=== PATIENT | female | born 1965 | race Caucasian/White ===

== ENCOUNTER 2018-02-25 12:49 | Emergency (ER) | payer SELFPAY ==
--- OUTSIDE RECORDS SUMMARY | 2018-02-25 12:52 | XMS REPORT ---
:1965 [facility] [address] [place] [address] Care Team Providers Name Role Phone Unavailable Unavailable Unavailable Problems This patient has no known problems. Allergies, Adverse Reactions, Alerts This patient has no known allergies or adverse reactions. Medications This patient has no known medications. Results Test Description Test Time Test Comments Text Results Atomic Results Result Comments U/S GALLBLADDER 2016-09-04 16:42:08 Right upper quadrant ultrasoundLocation Code: [id number] HISTORY: Abdominal painTechnique: Grayscale and selected color Doppler ultrasound of the abdomen wasperformed.Findings:The liver is normal in echogenicity. There is no mass or intrahepatic biliaryductal dilatation. Right liver span is 15.2 cm.There are multiple intraluminal gallstones. Gallbladder wall is 3 mm. Commonbile duct measures 5 mm. There is no pericholecystic fluid. Sonographic Murphysign is negative.The right kidney is normal in echogenicity with no focal mass, cyst,calcification, or hydronephrosis. It measures 10.8 x 5.9 x 5.5 cm.The visualized portions of the pancreas, aorta, and inferior vena cava areunremarkable. IMPRESSION: Cholelithiasis without sonographic evidence of cholecystitis. LIVER PROFILE 2016-09-04 16:24:00 Test Item Value Reference Range Comments BILI TOTAL (test code=11A) 0.2 mg/dL 0.2-1.0 BILI DIRCT (test code=12A) <0.1 mg/dL 0.0-0.2 PROTEIN (test code=07D) 7.7 g/dL 6.4-8.2 ALBUMIN (test code=08D) 3.7 g/dL 3.5-4.8 GLOBULIN (test code=GLB) 4.0 g/dL 1.5-3.8 ALB/GLOB (test code=AGRR) 0.9 1.0-2.6 ALK PHOS (test code=35A) 64 IU/L 42-121 AST (test code=30A) 15 IU/L <=42 ALT (test code=31A) 25 IU/L <=78 BASIC METABOLIC [id number] 16:21:00 Test Item Value Reference Range Comments GLUCOSE (test code=06D) 92 mg/dL 75-100 SODIUM (test code=01A) 137 mmol/L 136-145 POTASSIUM (test code=01B) 3.6 mmol/L 3.6-5.1 CHLORIDE (test code=04A) 103 mmol/L 98-107 CO2 (test code=02A) 27 mmol/L 22-32 ANION GAP (test code=ANG) 10.6 mmol/L BUN (test code=05D) 8 mg/dL 7-18 CREATININE (test code=03E) 0.6 mg/dL 0.4-1.1 BUN/CREA R (test code=BCR) 14 12-20 CALCIUM (test code=09D) 9.5 mg/dL 8.3-9.5 CARDIAC [id number] 16:21:00 Test Item Value Reference Range Comments TROPONIN I (test code=A84) <0.015 ng/mL 0.000-0.045 CKMB (test code=A49) <1.0 ng/mL <=3.6 CPK (test code=32A) 75 IU/L 26-192 AMYLASE AND [id number] 16:21:00 Test Item Value Reference Range Comments AMYLASE (test code=10A) 46 U/L 28-100 LIPASE (test code=60A) 150 IU/L 73-393 PRO TIME AND [id number] 16:16:00 Test Item Value Reference Range Comments PT (test code=TT) 10.9 s 9.8-13.6 INR (test code=INR) 1.0 INRH (test code=INRH) SUGGESTED THERAPEUTIC RANGE FOR INR: 2.5 - 3.5 For Patients with Prosthetic Valves or Patients with recurrent Thromboembolic Events 2.0 - 3.0 For Most Other Applications PTT (test code=PTT) 33.5 s 20.2-38.0 PTTH (test code=PTTH) To monitor the effectiveness of heparin, we offer the Anti-Xa (Heparin Assay). It can be used for either unfractinated or LMW Heparin. Order Code is ANTI-XA SERUM [id number] 16:11:00 Test Item Value Reference Range Comments PREG SRM (test code=PGS) NEGATIVE NEGATIVE [id number] 16:07:00 Test Item Value Reference Range Comments COLOR (test code=COLU) YELLOW YELLOW CLARITY (test code=CLA) CLEAR CLEAR GLUCOSE UR (test code=UA GLUCOSE) NEGATIVE NEGATIVE BILI UR (test code=BILE) NEGATIVE NEGATIVE KETONES UR (test code=AMARI) NEGATIVE NEGATIVE SP GRAVITY (test code=SPGR) 1.006 1.005-1.030 PH UR (test code=PH) 7.5 4.5-8.0 PROTEIN UR (test code=PU) NEGATIVE NEGATIVE UROBIL UR (test code=UROQ) 0.2 EU/dL 0.2-1.0 NITRITE UR (test code=NITRITE) NEGATIVE NEGATIVE BLOOD UR (test code=UA BLOOD) NEGATIVE NEGATIVE LEUK ES UR (test code=LEUK) NEGATIVE NEGATIVE CBC (INCLUDES AUTOMATED DIFFERENTIAL)2016-09-04 16:06:00 Test Item Value Reference Range Comments WBC (test code=WBC) 8.8 10\S\3/uL 4.5-11.0 RBC (test code=RBC) 5.13 10\S\6/uL 4.20-5.60 HGB (test code=HBG) 14.9 g/dL 12.0-15.5 HCT (test code=HCT) 44.8 % 35.0-44.0 MCV (test code=MCV) 87.3 fL 81.0-99.0 MCH (test code=MCH) 29.0 pg 27.0-31.0 MCHC (test code=MCHC) 33.3 g/dL 32.0-36.0 RDW (test code=RDW) 15.1 % 11.5-14.5 PLT (test code=PLT) 239 10\S\3/uL 130-400 MPV (test code=MPV) 10.6 fL 9.4-12.4 NEUTROP # (test code=NE#) 5.1 10\S\3/uL 1.6-8.0 LYMPH # (test code=LY#) 2.9 10\S\3/uL 1.1-3.5 MONOCYTE # (test code=MO#) 0.6 10\S\3/uL 0.0-1.1 EOSINOPH # (test code=EO#) 0.1 10\S\3/uL 0.0-0.7 BASOPHIL # (test code=BA#) 0.1 10\S\3/uL 0.0-0.3 IG # (test code=IG#) 0.04 10\S\3/uL 0.00-0.06 NRBC # (test code=NRBC#) 0.00 10\S\3/uL 0.00-0.01 NEUTROPH % (test code=NE%) 57.7 % 35.0-73.0 LYMPH % (test code=LY%) 33.3 % 20.0-55.0 MONO % (test code=MO%) 7.1 % 2.5-10.0 EOSINOPH % (test code=EO%) 0.8 % 0.0-5.0 BASOPHIL % (test code=BA%) 0.6 % 0.0-2.0 IG % (test code=IG%) 0.5 % 0.0-0.8 NRBC% (test code=NRBC%) 0.0 % 0.0-0.2 MANDIFF (test code=MDIFF) NO NO
[2018-02-25] MEDS ORDERED: ASPIRIN 81 MG CHEWABLE TABLET ONE ×2 (13:16→13:20)
[2018-02-25] MEDS ORDERED: NA CHLORIDE 0.9% 1,000 ML ONE (13:16)
[2018-02-25 13:33] LABS: Absolute Lymphocytes (CBC) 1.9 K/uL (0.7-4.9); Absolute Monocytes 0.5 K/uL (0.1-1.3); Absolute Neutrophil 3.3 K/uL (1.8-8.0); Basophils % 0.8 % (0-1.3); Eosinophils % 1.4 % (0-4.4); Hematocrit 41.9 % (36.0-45.0); Lymphocytes % 33.3 % (15.3-44.8); MCH 27.8 pg (27.0-35.0); MCV 84.1 fL (80-100); MPV 9.3 fL (7.6-11.3); Monocytes % 7.9 % (3.3-12.3); RBC Red Blood Cell Count 4.98 M/uL (3.86-4.86)
[2018-02-25 13:38] LABS: Protime INR 0.98
[2018-02-25] MEDS ORDERED: IPRATROPIUM BROM 0.5MG/2.5ML ONE (13:42)
[2018-02-25] MEDS ORDERED: ALBUTEROL 2.5 MG/3 ML NEB SOL ONE (13:42)
[2018-02-25 13:55] LABS: ALT/SGPT 31 U/L (12-78); AST/SGOT 19 U/L (15-37); Albumin 3.9 g/dL (3.4-5.0); Alkaline Phosphatase 74 U/L (45-117); BUN Blood Urea Nitrogen 10 mg/dL (7-18); Bicarbonate 22 mmol/L (21-32); Bilirubin Direct < 0.1 mg/dL (0-0.2); Bilirubin Total 0.2 mg/dL (0.2-1.0); Glucose Level 105 mg/dL (74-106); Lipase 152 U/L (73-393); Magnesium 2.2 mg/dL (1.8-2.4); NT PRO-BNP 42 pg/mL (<125); Potassium 3.5 mmol/L (3.5-5.1); Protein, Total 7.5 g/dL (6.4-8.2); Sodium Level 141 mmol/L (136-145); Troponin (Emerg Dept Use Only) < 0.02 ng/mL (0.0-0.045)
[2018-02-25] MEDS ORDERED: KETOROLAC 30 MG/ML INJ ONE (14:25)
--- NOTE | 2018-02-25 15:46 | RAD REPORT ---
EXAM DESCRIPTION: William Single View02/25/2018 3:02 pm CLINICAL HISTORY: Chest pain COMPARISON: none FINDINGS: The left base is hazy. The remainder of the lungs appear clear. The heart is normal size IMPRESSION: Left base is hazy. This may represent a mild infiltrate/atelectasis or overlying soft t issue. PA and lateral chest series is recommended
--- NOTE | 2018-02-25 16:48 | RAD REPORT ---
EXAM DESCRIPTION: CT - Chest Angio - 02/25/2018 4:16 pm CLINICAL HISTORY: Chest pain. chest pain radiating to right arm COMPARISON: No comparisons TECHNIQUE: CT angiogram of the pulmonary arteries was performed with MIP. All CT scans are performed using dose optimization technique as appropriate and may include automated exposure control or mA/KV adjustment according to patient size. FINDINGS: No evidence of pulmonary thromboembolism. No acute aortic finding demonstrated. The lungs are mildly emphysematous with a 5 mm nodule in the superior segment right lower lobe. Pleur al abutting nodule is present measuring 8 mm in the posterior right upper lobe. 6 mm juxtapleural nod ules present in the left lung base. No focal pulmonary infiltrate is seen. No significant pericardial or pleural fluid. No concerning bony finding. Mild fatty liver. IMPRESSION: No evidence of pulmonary thromboembolism. Bilateral pulmonary nodules are present. According to the 2017 Fleishner guidelines for solid nodules 6-8 mm in size: Multiple nodules: *Low risk - CT at 3-6 months, then consider CT at 18-24 months. *High risk - CT at 3-6 months, then CT at 18-24 months.
--- NOTE | 2018-02-25 17:36 | ER ---
Nurse's Notes [facility] Name: Gianna Sharp Age: 52 yrs Sex: Female : 1965 Arrival Date: 02/25/2018 Time: 12:50 Bed 27 Private MD: Diagnosis: Other chest pain Presentation: 02/25 12:53 Presenting complaint: Patient states: R sided chest pains, since started today a little ch while ago. goes into my R arm. Transition of care: patient was not received from another setting of care. Onset of symptoms was February 25, 2018 at 12:00. Risk Assessment: Do you want to hurt yourself or someone else? Patient reports no desire to harm self or others. Initial Sepsis Screen: Does the patient meet any 2 criteria? No. Patient's initial sepsis screen is negative. Does the patient have a suspected source of infection? No. Patient's initial sepsis screen is negative. Care prior to arrival: None. 12:53 Method Of Arrival: Ambulatory 12:53 Acuity: ELICIA 3 ch Triage Assessment: 12:55 General: Appears in no apparent distress. comfortable, Behavior is calm, cooperative, ch appropriate for age. Pain: Complains of pain in anterior aspect of right upper chest and right breast. 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 - Social history:: Smoking status: Patient/guardian denies using tobacco. - Ebola Screening: : Patient negative for fever greater than or equal to 101.5 degrees Fahrenheit, and additional compatible Ebola Virus Disease symptoms Patient denies exposure to infectious person Patient denies travel to an Ebola-affected area in the 21 days before illness onset No symptoms or risks identified at this time. Screenin:27 Abuse screen: Denies threats or abuse. Nutritional screening: No deficits noted. la1 Tuberculosis screening: No symptoms or risk factors identified. Fall Risk None identified. Assessment: 13:27 General: Appears in no apparent distress. Behavior is calm, cooperative. Pain: la1 Complains of pain in chest and anterior aspect of right upper chest Pain does not radiate. Pain began 4 hours ago. Neuro: Level of Consciousness is awake, alert, obeys commands, Oriented to person, place, time, situation. Cardiovascular: Denies diaphoresis, lightheadedness, shortness of breath, Heart tones S1 S2 present Capillary refill < 3 seconds Patient's skin is warm and dry. Rhythm is sinus rhythm. Respiratory: Airway is patent Respiratory effort is even, unlabored, Respiratory pattern is regular, symmetrical, Breath sounds are clear bilaterally. GI: No signs and/or symptoms were reported involving the gastrointestinal system. : No signs and/or symptoms were reported regarding the genitourinary system. 14:39 Reassessment: Patient and/or family updated on plan of care and expected duration. Pain aj1 level reassessed. General: Appears in no apparent distress. comfortable, Behavior is calm, cooperative, appropriate for age. Pain: Complains of pain in anterior aspect of right upper chest Pain does not radiate. Pain currently is 8 out of 10 on a pain scale. Neuro: Level of Consciousness is awake, alert, obeys commands, Oriented to person, place, time, situation. Cardiovascular: Heart tones S1 S2 present Patient's skin is warm and dry. Rhythm is sinus rhythm. Respiratory: Airway is patent Respiratory effort is even, unlabored, Respiratory pattern is regular, symmetrical, Breath sounds are clear bilaterally. GI: No signs and/or symptoms were reported involving the gastrointestinal system. : No signs and/or symptoms were reported regarding the genitourinary system. EENT: No signs and/or symptoms were reported regarding the EENT system. Derm: No signs and/or symptoms reported regarding the dermatologic system. Skin is pink, warm \T\ dry. normal. 15:30 Reassessment: Patient appears in no apparent distress at this time. No changes from aj1 previously documented assessment. Patient and/or family updated on plan of care and expected duration. Pain level reassessed. Patient is alert, oriented x 3, equal unlabored respirations, skin warm/dry/pink. 16:30 Reassessment: Patient and/or family updated on plan of care and expected duration. Pain aj1 level reassessed. General: Appears in no apparent distress. comfortable, Behavior is calm, cooperative, appropriate for age. Neuro: Level of Consciousness is awake, alert, obeys commands, Oriented to person, place, time, situation. Cardiovascular: Patient's skin is warm and dry. Rhythm is sinus rhythm. Respiratory: Airway is patent Respiratory effort is even, unlabored, Respiratory pattern is regular, symmetrical. Derm: Skin is pink, warm \T\ dry. normal. Musculoskeletal: Circulation, motion, and sensation intact. 17:30 Reassessment: Patient appears in no apparent distress at this time. No changes from aj1 previously documented assessment. Patient and/or family updated on plan of care and expected duration. Pain level reassessed. Patient is alert, oriented x 3, equal unlabored respirations, skin warm/dry/pink. Vital Signs: 12:55 Weight 73.03 kg; Height 5 ft. 3 in. (160.02 cm); Pain 8/10; ch 13:26 BP 99 / 81; Pulse 83; Resp 16; Temp 97.9; Pulse Ox 98% on R/A; la1 14:39 BP 109 / 84; Pulse 85; Resp 18; Pulse Ox 100% on R/A; aj1 15:00 BP 147 / 79 RA Sitting (auto/reg); Pulse 78; Pulse Ox 100% ; jp3 15:45 BP 129 / 91 RA Sitting (auto/reg); Pulse 87; Pulse Ox 98% on R/A; jp3 15:50 BP 144 / 86 LA Sitting (auto/reg); Pulse 84; Pulse Ox 99% on R/A; jp3 16:00 BP 128 / 94 RA Sitting (auto/reg); Pulse 80; Pulse Ox 99% on R/A; jp3 17:00 BP 132 / 75; Pulse 88; Resp 16; Pulse Ox 97% ; aj1 12:55 Body Mass Index 28.52 (73.03 kg, 160.02 cm) ED Course: 12:50 Patient arrived in ED. as 12:54 Triage completed. ch 12:55 Arm band placed on left wrist. EKG completed in triage. Results shown to MD. 13:02 Yossi Dale PA is PHCP. cp 13:02 Kunal Hinojosa MD is Attending Physician. cp 13:07 Sharan Snow RN is Primary Nurse. la1 13:27 No provider procedures requiring assistance completed. Inserted saline lock: 20 gauge la1 in left antecubital area, using aseptic technique. ,using aseptic technique. by [facility] Blood collected. Patient maintains SpO2 saturation greater than 95% on room air. 13:28 Placed in gown. Bed in low position. Call light in reach. Side rails up X 1. Side rails jp3 up X2. vocal music instructor on. Pulse ox on. NIBP on. 13:28 Initial lab(s) drawn, by me, sent to lab. EKG done, by chemical plant technical director. reviewed by Yossi Dale jp3 KULWANT. 13:28 D-Dimer Sent. jp3 13:28 Lipase Sent. jp3 13:29 Basic Metabolic Panel Sent. jp3 13:29 CBC with Diff Sent. jp3 13:29 LFT's Sent. jp3 13:29 Magnesium Sent. jp3 13:29 NT PRO-BNP Sent. jp3 13:29 PT-INR Sent. jp3 13:29 Troponin (emerg Dept Use Only) Sent. jp3 15:02 XRAY Chest (1 view) In Process Unspecified. EDMS 16:16 CT Chest Angio In Process Unspecified. EDMS 16:51 Repeat lab(s) drawn. by me, sent to lab. jp3 16:51 Troponin I Sent. jp3 16:55 REPEAT EKG DONE. sm3 18:05 IV discontinued, intact, bleeding controlled, No redness/swelling at site. Pressure la1 dressing applied. Administered Medications: 13:25 Drug: Aspirin Chewable Tablet 324 mg Route: PO; la1 15:30 Follow up: Response: No adverse reaction aj1 18:05 Follow up: Response: No adverse reaction la1 13:26 Drug: NS 0.9% 1000 ml Route: IV; Rate: 1 bolus; Site: right antecubital; la1 14:30 Follow up: IV Status: Completed infusion; IV Intake: 1000ml aj1 18:05 Follow up: IV Status: Completed infusion la1 14:30 Drug: TORadol 30 mg Route: IVP; Site: right antecubital; aj1 18:05 Follow up: Response: No adverse reaction; Pain is decreased la1 Intake: 14:30 IV: 1000ml; Total: 1000ml. aj1 Outcome: 17:35 Discharge ordered by . cp 18:06 Discharged to home ambulatory. la1 18:06 Condition: stable 18:06 Discharge instructions given to patient, Instructed on discharge instructions, follow up and referral plans. medication usage, Demonstrated understanding of instructions, follow-up care, medications, Prescriptions given X 3. 18:06 Patient left the ED. la1 Signatures: Dispatcher [employer] EDMS Tona Quarles RN RN Fatimah Amin RN RN aj1 Diamond Mckeon Lee, RN RN la1 Yossi Dale PA PA cp Montes, Shakira 3 Joaquin Estrada jp3
--- NOTE | 2018-02-25 17:36 | EDPHYS ---
Physician Documentation [facility] Name: Gianna Sharp Age: 52 yrs Sex: Female : 1965 Arrival Date: 02/25/2018 Time: 12:50 Bed 27 Private MD: ED Physician Kunal Hinojosa HPI: 02/25 13:10 This 52 yrs old Female presents to ER via Ambulatory with complaints of Chest cp Pain. 13:10 The patient or guardian reports chest pain that is located primarily in the anterior cp chest wall, right. 13:10 Onset: this morning. The pain radiates to the right arm. Associated signs and symptoms: cp Pertinent negatives: abdominal pain, cough, diaphoresis, dizziness, lower extremity pain, lower extremity swelling, palpitations, recent travel, shortness of breath, syncope, vomiting. The chest pain is described as aching. Duration: The patient or guardian reports multiple episodes, that wax and wane. Modifying factors: the symptoms are aggravated by deep breath, emotionally stressful situations, movement and palpation of right shoulder. . 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 - Social history:: Smoking status: Patient/guardian denies using tobacco. - Ebola Screening: : Patient negative for fever greater than or equal to 101.5 degrees Fahrenheit, and additional compatible Ebola Virus Disease symptoms Patient denies exposure to infectious person Patient denies travel to an Ebola-affected area in the 21 days before illness onset No symptoms or risks identified at this time. ROS: 13:15 Constitutional: Negative for body aches, chills, fever, poor PO intake. cp 13:15 Eyes: Negative for injury, pain, redness, and discharge. cp 13:15 ENT: Negative for drainage from ear(s), ear pain, sore throat, difficulty swallowing, cp difficulty handling secretions. 13:15 Neck: Negative for pain with movement, pain at rest, tenderness, bony tenderness. 13:15 Cardiovascular: Positive for chest pain, of the right breast and anterior aspect of right upper chest, Negative for edema, orthopnea, palpitations. 13:15 Respiratory: Negative for cough, shortness of breath, wheezing. 13:15 Abdomen/GI: Negative for abdominal pain, nausea, vomiting, and diarrhea, constipation, black/tarry stool, rectal bleeding. 13:15 Back: Negative for pain at rest, pain with movement, radiated pain. 13:15 MS/extremity: Positive for pain, tenderness, of the right shoulder, Negative for injury or acute deformity, paresthesias. 13:15 Skin: Negative for cellulitis, rash. 13:15 Neuro: Negative for altered mental status, dizziness, headache, syncope, near syncope, weakness. 13:15 All other systems are negative. Exam: 13:05 ECG was reviewed by the Attending Physician. cp 13:15 Constitutional: The patient appears in no acute distress, alert, awake, cp non-diaphoretic, non-toxic, well developed, well nourished. 13:15 Head/Face: Normocephalic, atraumatic. cp 13:15 Eyes: Pupils equal round and reactive to light, extra-ocular motions intact. Lids and cp lashes normal. Conjunctiva and sclera are non-icteric and not injected. Cornea within normal limits. Periorbital areas with no swelling, redness, or edema. ENT: Nares patent. No nasal discharge, no septal abnormalities noted. Tympanic membranes are normal and external auditory canals are clear. Oropharynx with no redness, swelling, or masses, exudates, or evidence of obstruction, uvula midline. Mucous membranes moist. Neck: Trachea midline, no thyromegaly or masses palpated, and no cervical lymphadenopathy. Supple, full range of motion without nuchal rigidity, or vertebral point tenderness. No Meningismus. 13:15 Chest/axilla: Inspection: normal, Palpation: crepitus, is not appreciated, tenderness, cp that is mild, of the anterior aspect of right upper chest and right breast, that partially reproduces the patient's complaints. 13:15 Cardiovascular: Rate: normal, Rhythm: regular, Pulses: Pulses are 2+ in right radial artery and left radial artery. Heart sounds: murmur, not appreciated, rub, not appreciated, gallop, not appreciated, Edema: is not appreciated, JVD: is not appreciated. 13:15 Respiratory: the patient does not display signs of respiratory distress, Respirations: normal, no use of accessory muscles, no retractions, no splinting, no tachypnea, labored breathing, is not present, Breath sounds: are clear throughout, no decreased breath sounds, no stridor, no wheezing. 13:15 Abdomen/GI: Inspection: abdomen appears normal, Palpation: abdomen is soft and non-tender, in all quadrants. 13:15 Back: pain, is absent, ROM is normal. 13:15 Musculoskeletal/extremity: Joints: All joints are normal except the right shoulder displays painful range of motion, tenderness, noted to lateral shoulder. 13:15 Skin: cellulitis, is not appreciated, no rash present. 13:15 Neuro: Orientation: to person, place \T\ time. Mentation: lucid, able to follow commands, Cerebellar function: is grossly normal, Motor: moves all fours, strength is normal, Sensation: no obvious gross deficits. 17:01 ECG was reviewed by the Attending Physician. cp Vital Signs: 12:55 Weight 73.03 kg; Height 5 ft. 3 in. (160.02 cm); Pain 8/10; ch 13:26 BP 99 / 81; Pulse 83; Resp 16; Temp 97.9; Pulse Ox 98% on R/A; la1 14:39 BP 109 / 84; Pulse 85; Resp 18; Pulse Ox 100% on R/A; aj1 15:00 BP 147 / 79 RA Sitting (auto/reg); Pulse 78; Pulse Ox 100% ; jp3 15:45 BP 129 / 91 RA Sitting (auto/reg); Pulse 87; Pulse Ox 98% on R/A; jp3 15:50 BP 144 / 86 LA Sitting (auto/reg); Pulse 84; Pulse Ox 99% on R/A; jp3 16:00 BP 128 / 94 RA Sitting (auto/reg); Pulse 80; Pulse Ox 99% on R/A; jp3 17:00 BP 132 / 75; Pulse 88; Resp 16; Pulse Ox 97% ; aj1 12:55 Body Mass Index 28.52 (73.03 kg, 160.02 cm) ch MDM: 13:02 Patient medically screened. cp 13:30 Differential diagnosis: abnormal EKG, acute myocardial infarction, acute pericarditis, cp chest wall pain, esophagitis, gastritis, pleurisy, pneumonia, pneumothorax, pulmonary embolus, stable angina, thoracic aortic disection, unstable angina, shoulder tendonitis. 17:35 The patient was given aspirin in the Emergency Department. 17:35 Data reviewed: vital signs, nurses notes, lab test result(s), EKG, radiologic studies, cp CT scan, plain films. Test interpretation: by ED physician or midlevel provider: ECG, plain radiologic studies. Special discussion: I discussed with the patient the need to follow-up with the PCP/specialist for the noted incidental finding on X-ray/CT scanning. 17:35 ED course: VSS. Pain improved with IV fluids and meds. While in ED patient reported cp that she has been under increased family stress due to marital difficulties but does have someone to talk with. Will discharge to home for continued monitoring. 02/25 13:08 Order name: Basic Metabolic Panel; Complete Time: 13:56 02/25 13:56 Interpretation: Normal except: CL 111; GFR 88. 02/25 13:08 Order name: CBC with Diff; Complete Time: 13:52 02/25 15:55 Interpretation: Normal except: RBC 4.98; RDW 17.3. 02/25 13:08 Order name: LFT's; Complete Time: 13:56 02/25 13:57 Interpretation: Normal except: GLOB 3.6. 02/25 13:08 Order name: Magnesium; Complete Time: 13:56 02/25 13:08 Order name: NT PRO-BNP; Complete Time: 13:56 02/25 13:08 Order name: PT-INR; Complete Time: 13:52 02/25 13:08 Order name: Troponin (emerg Dept Use Only); Complete Time: 13:56 02/25 13:57 Interpretation: TROPED < 0.02; Reviewed. 02/25 13:08 Order name: XRAY Chest (1 view); Complete Time: 15:51 02/25 13:08 Order name: Lipase; Complete Time: 13:56 10 13:57 Interpretation: Within normal limits: LIP 152. 02/25 13:08 Order name: D-Dimer; Complete Time: 13:52 02/25 13:53 Interpretation: D-DIMER 231; Reviewed. 02/25 16:01 Order name: CT Chest Angio; Complete Time: 16:58 cp 02/25 16:22 Order name: Troponin I; Complete Time: 17:34 cp 02/25 13:08 Order name: EKG; Complete Time: 13:16 cp 02/25 13:08 Order name: Cardiac monitoring; Complete Time: 13:29 cp 02/25 13:08 Order name: EKG - Nurse/Tech; Complete Time: 13:11 cp 02/25 13:08 Order name: IV Saline Lock; Complete Time: 13:26 cp 02/25 13:08 Order name: Labs collected and sent; Complete Time: 13:26 cp 02/25 13:08 Order name: O2 Per Protocol; Complete Time: 13:26 cp 02/25 13:08 Order name: O2 Sat Monitoring; Complete Time: 13:29 cp 02/25 15:05 Order name: Blood Pressure Recheck: bilateral upper extremities; Complete Time: 16:04 cp 02/25 16:22 Order name: EKG; Complete Time: 16:23 cp 02/25 16:22 Order name: EKG - Nurse/Tech; Complete Time: 16:51 cp EC:05 Rate is 86 beats/min. Rhythm is regular. KS interval is normal. QRS interval is normal. cp QT interval is normal. T waves are Flattened in lead III. Interpreted by me. Reviewed by me. 17:01 Rate is 79 beats/min. Rhythm is regular. KS interval is normal. QRS interval is normal. cp QT interval is normal. T waves are Flattened in lead III. Interpreted by me. Reviewed by me. Administered Medications: 13:25 Drug: Aspirin Chewable Tablet 324 mg Route: PO; la1 15:30 Follow up: Response: No adverse reaction aj1 18:05 Follow up: Response: No adverse reaction la1 13:26 Drug: NS 0.9% 1000 ml Route: IV; Rate: 1 bolus; Site: right antecubital; la1 14:30 Follow up: IV Status: Completed infusion; IV Intake: 1000ml aj1 18:05 Follow up: IV Status: Completed infusion la1 14:30 Drug: TORadol 30 mg Route: IVP; Site: right antecubital; aj1 18:05 Follow up: Response: No adverse reaction; Pain is decreased la1 Disposition: 18:56 Co-signature as Attending Physician, Kunal Hinojosa MD. rn Disposition: 02/25/18 17:35 Discharged to Home. Impression: Other chest pain. - Condition is Stable. - Discharge Instructions: Nonspecific Chest Pain. - Prescriptions for ketorolac 10 mg Oral tablet - take 1 tablet by ORAL route every 6 hours As needed not to exceed 40 mg in 24hrs. take with food; 15 tablet. Ultram 50 mg Oral Tablet - take 1 tablet by ORAL route every 6 hours As needed no driving while taking medication; 15 tablet. Cyclobenzaprine 10 mg Oral Tablet - take 1 tablet by ORAL route every 8 hours As needed no driving while taking medication; 20 tablet. - Medication Reconciliation Form, Thank You Letter, Antibiotic Education, Prescription Opioid Use form. - Family Work Release (02/25/18 18:10). aj1 - Follow up: Private Physician; When: 2 - 3 days; Reason: Recheck today's complaints. - Problem is new. - Symptoms have improved. Signatures: Dispatcher [employer] [facility] Tona Quarles RN RN ch Johnson, Angela, RN RN aj1 Kunal Hinojosa MD MD rn Attema, Lee, RN RN la1 Yosis Dale, PA PA cp Corrections: (The following items were deleted from the chart) 16:14 15:52 Chest Pa And Lat (2 Views)+RAD.RAD.BRZ ordered. [facility] 17:49 02/24 13:20 Constitutional: The patient appears in no acute distress, alert, awake, cp non-diaphoretic, non-toxic, well developed, well nourished, cp 02/25 17:49 02/24 13:20 Head/Face: Normocephalic, atraumatic. cp cp 02/25 18:06 17:35 02/25/2018 17:35 Discharged to Home. Impression: Other chest pain. Condition is la1 Stable. Forms are Medication Reconciliation Form, Thank You Letter, Antibiotic Education, Prescription Opioid Use. Follow up: Private Physician; When: 2 - 3 days; Reason: Recheck today's complaints. Problem is new. Symptoms have improved. cp
--- NOTE | 2018-02-26 07:52 | EKG ---
Test Date: 2018-02-25 Test Time: 16:51:29 Intel Analyst: GONZALO MEASUREMENT RESULTS: Intervals: Rate: 79 ME: 150 QRSD: 84 QT: 404 QTc: 463 [place]: P: 50 ME: 150 QRS: 14 T: 33 INTERPRETIVE STATEMENTS: Normal sinus rhythm Normal ECG Compared to ECG 02/25/2018 13:01:52 No significant changes Electronically Signed On 02-26-18 07:51:29 CDT by Owen Maloney
--- NOTE | 2018-02-26 07:54 | EKG ---
Test Date: 2018-02-25 Test Time: 13:01:52 Outside Plant Technician: JENNY MEASUREMENT RESULTS: Intervals: Rate: 86 GA: 136 QRSD: 78 QT: 360 QTc: 430 [place]: P: 53 GA: 136 QRS: 16 T: 40 INTERPRETIVE STATEMENTS: Normal sinus rhythm Normal ECG No previous ECG available for comparison Electronically Signed On 02-26-18 07:52:06 CDT by Owen Maloney
== END 2018-02-25 18:06 | disposition home or self-care (01) ==
LOC: ER 12:49
DX: R07.89 Other chest pain (principal); I10 Essential (primary) hypertension; E78.5 Hyperlipidemia, unspecified; I45.6 Pre-excitation syndrome
CPT/HCPCS: 36415; 71045; 71275; 80048; 80076; 83690; 83735; 83880; 84484; 85025; 85379; 85610; 93005; 96361; 96374; 99285; J7030; Q9967

== ENCOUNTER 2018-05-29 14:17 | Emergency (ER) | payer BC ==
--- OUTSIDE RECORDS SUMMARY | 2018-05-29 14:19 | XMS REPORT ---
:1965 Author Organization [facility] Address [address] [place] [address] Care Team Providers Name Role Phone Unavailable Unavailable Unavailable Problems This patient has no known problems. Allergies, Adverse Reactions, Alerts This patient has no known allergies or adverse reactions. Medications This patient has no known medications. Results Test Description Test Time Test Comments Text Results Atomic Results Result Comments U/S GALLBLADDER 2016-09-04 16:42:08 Right upper quadrant ultrasoundLocation Code: [id number] HISTORY: Abdominal painTechnique: Grayscale and selected color [...] (test code=31A) 25 IU/L <=78 BASIC METABOLIC [id number] 16:21:00 Test Item Value Reference Range Comments [...] CALCIUM (test code=09D) 9.5 mg/dL 8.3-9.5 CARDIAC [id number] 16:21:00 Test Item Value Reference Range Comments TROPONIN I (test code=A84) <0.015 ng/mL 0.000-0.045 CKMB (test code=A49) <1.0 ng/mL <=3.6 CPK (test code=32A) 75 IU/L 26-192 AMYLASE AND [id number] 16:21:00 Test Item Value Reference Range Comments AMYLASE (test code=10A) 46 U/L 28-100 LIPASE (test code=60A) 150 IU/L 73-393 PRO TIME AND [id number] 16:16:00 Test Item Value Reference Range Comments [...] LMW Heparin. Order Code is ANTI-XA SERUM [id number] 16:11:00 Test Item Value Reference Range Comments PREG SRM (test code=PGS) NEGATIVE NEGATIVE [id number] 16:07:00 Test Item Value Reference Range Comments [...]
[2018-05-29] MEDS ORDERED: NA CHLORIDE 0.9% 1,000 ML ONE (16:11)
[2018-05-29 17:05] LABS: Potassium 3.9 mmol/L (3.5-5.1)
--- NOTE | 2018-05-29 18:19 | RAD REPORT ---
EXAM DESCRIPTION: [facility] (2 Views)05/29/2018 5:09 pm CLINICAL HISTORY: Cough COMPARISON: February 2018 FINDINGS: The patient's previously described lung nodules are not seen on this exam but could be mis sed. Please refer to the CT report for recommendation The lungs appear clear of acute infiltrate. The heart is normal size
[2018-05-29 18:55] LABS: Urine Blood NEGATIVE (NEG); Urine Glucose NEGATIVE (NEG); Urine Protein 2+ (NEG); Urine Specific Gravity 1.025 (1.005-1.030); Urine pH 5.5 (5.0-7.0)
--- NOTE | 2018-05-29 19:12 | ER ---
Nurse's Notes [facility] Name: Gianna Sharp Age: 52 yrs Sex: Female : 1965 Arrival Date: 05/29/2018 Time: 14:19 Bed 15 Private MD: Diagnosis: Cough;Diarrhea, unspecified Presentation: 05/29 14:31 Presenting complaint: Patient states: Diarrhea, chills, nausea, body aches, and hb headache x [address] Mcdaniel. Transition of care: patient was not received from another setting of care. Onset of symptoms was May 24, 2018. Risk Assessment: Do you want to hurt yourself or someone else? Patient reports no desire to harm self or others. Initial Sepsis Screen: Does the patient meet any 2 criteria? No. Patient's initial sepsis screen is negative. Does the patient have a suspected source of infection? No. Patient's initial sepsis screen is negative. Care prior to arrival: None. 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 - Social history:: Smoking status: Patient/guardian denies using tobacco. - Ebola Screening: : No symptoms or risks identified at this time. Screenin:40 Abuse screen: Denies threats or abuse. Nutritional screening: No deficits noted. rb1 Tuberculosis screening: No symptoms or risk factors identified. Fall Risk None identified. Assessment: 15:40 General: Appears in no apparent distress. comfortable, Behavior is calm, cooperative, rb1 Reports fever for feeling ill for. Pain: Complains of pain in epigastric area Pain currently is 7 out of 10 on a pain scale. Neuro: Level of Consciousness is awake, alert, obeys commands, Oriented to person, place, time, situation. Neuro: Reports weakness. Cardiovascular: Capillary refill < 3 seconds is brisk in bilateral fingers. Respiratory: Airway is patent Respiratory effort is even, unlabored, Respiratory pattern is regular, symmetrical. Respiratory: Reports cough that is. GI: Reports diarrhea, x 4 days. : No signs and/or symptoms were reported regarding the genitourinary system. Derm: Skin is dry, Skin is normal, Skin temperature is warm. Musculoskeletal: Range of motion: intact in all extremities. 16:40 Reassessment: Patient appears in no apparent distress at this time. No changes from rb1 previously documented assessment. 17:40 Reassessment: Patient appears in no apparent distress at this time. Patient and/or rb1 family updated on plan of care and expected duration. Pain level reassessed. Patient is alert, oriented x 3, equal unlabored respirations, skin warm/dry/pink. 18:40 Reassessment: Patient appears in no apparent distress at this time. No changes from rb1 previously documented assessment. 19:18 Reassessment: Patient appears in no apparent distress at this time. Patient and/or iw family updated on plan of care and expected duration. Pain level reassessed. Patient is alert, oriented x 3, equal unlabored respirations, skin warm/dry/pink. Patient states feeling better. Patient states symptoms have improved. Vital Signs: 14:30 BP 111 / 84; Pulse 69; Resp 16; Temp 98.9; Pulse Ox 100% ; Pain 8/10; hb 17:40 BP 131 / 93; Pulse 73; Resp 17; Pulse Ox 100% ; Pain 7/10; rb1 18:40 BP 138 / 89; Pulse 71; Resp 18; Pulse Ox 99% on R/A; rb1 19:18 BP 126 / 86; Pulse 78; Resp 16; Pulse Ox 98% on R/A; Pain 0/10; iw ED Course: 14:19 Patient arrived in ED. rg4 14:32 Triage completed. hb 14:33 Arm band placed on left wrist. hb 15:40 Sharona Romero FNP-C is PHCP. kb 15:40 Norman Melton MD is Attending Physician. kb 15:40 Patient has correct armband on for positive identification. Placed in gown. Bed in low rb1 position. Call light in reach. Side rails up X 1. Pulse ox on. NIBP on. Warm blanket given. 15:54 Kylee Briones, RN is Primary Nurse. rb1 16:20 Inserted saline lock: 20 gauge in left antecubital area, using aseptic technique. Blood rb1 collected. 17:07 Chest Pa And Lat (2 Views) XRAY In Process Unspecified. EDMS 18:55 Report given to ROLANDO Becker. rb1 19:18 No provider procedures requiring assistance completed. IV discontinued, intact, iw bleeding controlled, No redness/swelling at site. Pressure dressing applied. Administered Medications: 16:20 Drug: NS 0.9% 1000 ml Route: IV; Rate: 1000 ml; Site: right antecubital; rb1 18:40 Follow up: IV Status: Completed infusion iw Outcome: 19:12 Discharge ordered by MD. kb 19:18 Discharged to home ambulatory. iw 19:18 Condition: good 19:18 Discharge instructions given to patient, Instructed on discharge instructions, follow up and referral plans. medication usage, Demonstrated understanding of instructions, follow-up care, medications, Prescriptions given X 1. 19:19 Patient left the ED. iw Signatures: Dispatcher [employer] EDMS Sharona Romero, MARBLE SETTER-C MARBLE SETTER-Ckb Sejal Kline RN RN iw Kylee Briones, RN RN rb1 Gisel Tuttle, RN RN Vanessa [place] rg4
--- NOTE | 2018-05-29 19:13 | EDPHYS ---
Physician Documentation [facility] Name: Gianna Sharp Age: 52 yrs Sex: Female : 1965 Arrival Date: 05/29/2018 Time: 14:19 Bed 15 Private MD: ED Physician Norman Melton HPI: 05/29 16:08 This 52 yrs old Female presents to ER via Ambulatory with complaints of kb Dehydrated. 16:09 The patient or guardian reports cough, that is intermittent, described as moderate, kb with no sputum. Onset: The symptoms/episode began/occurred 4 day(s) ago. Severity of symptoms: At their worst the symptoms were moderate, in the emergency department the symptoms are unchanged. Modifying factors: The symptoms are alleviated by nothing, the symptoms are aggravated by nothing. Associated signs and symptoms: Pertinent positives: diarrhea, Pertinent negatives: chest pain, ear ache, fever, nausea, rhinorrhea, sore throat, vomiting. The patient has not experienced similar symptoms in the past. The patient has not recently seen a physician. 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 - Social history:: Smoking status: Patient/guardian denies using tobacco. - Ebola Screening: : No symptoms or risks identified at this time. ROS: 16:08 Constitutional: Negative for fever, chills, and weight loss, ENT: Negative for injury, kb pain, and discharge, Neck: Negative for injury, pain, and swelling, Cardiovascular: Negative for chest pain, palpitations, and edema, Back: Negative for injury and pain, : Negative for injury, bleeding, discharge, and swelling, MS/Extremity: Negative for injury and deformity, Skin: Negative for injury, rash, and discoloration, Neuro: Negative for headache, weakness, numbness, tingling, and seizure. 16:08 Respiratory: Positive for cough, Negative for dyspnea on exertion, hemoptysis, orthopnea, pleurisy, shortness of breath, sputum production, wheezing. 16:08 Abdomen/GI: Positive for abdominal pain, diarrhea, Negative for nausea and vomiting. Exam: 16:08 Constitutional: This is a well developed, well nourished patient who is awake, alert, kb and in no acute distress. Head/Face: Normocephalic, atraumatic. ENT: Nares patent. No nasal discharge, no septal abnormalities noted. Tympanic membranes are normal and external auditory canals are clear. Oropharynx with no redness, swelling, or masses, exudates, or evidence of obstruction, uvula midline. Mucous membranes moist. Neck: Trachea midline, no thyromegaly or masses palpated, and no cervical lymphadenopathy. Supple, full range of motion without nuchal rigidity, or vertebral point tenderness. No Meningismus. Chest/axilla: Normal chest wall appearance and motion. Nontender with no deformity. No lesions are appreciated. Cardiovascular: Regular rate and rhythm with a normal S1 and S2. No gallops, murmurs, or rubs. Normal PMI, no JVD. No pulse deficits. Respiratory: Lungs have equal breath sounds bilaterally, clear to auscultation and percussion. No rales, rhonchi or wheezes noted. No increased work of breathing, no retractions or nasal flaring. Abdomen/GI: Soft, non-tender, with normal bowel sounds. No distension or tympany. No guarding or rebound. No evidence of tenderness throughout. Back: No spinal tenderness. No costovertebral tenderness. Full range of motion. Skin: Warm, dry with normal turgor. Normal color with no rashes, no lesions, and no evidence of cellulitis. MS/ Extremity: Pulses equal, no cyanosis. Neurovascular intact. Full, normal range of motion. Neuro: Awake and alert, GCS 15, oriented to person, place, time, and situation. Cranial nerves II-XII grossly intact. Motor strength 5/5 in all extremities. Sensory grossly intact. Cerebellar exam normal. Normal gait. Vital Signs: 14:30 BP 111 / 84; Pulse 69; Resp 16; Temp 98.9; Pulse Ox 100% ; Pain 8/10; hb 17:40 BP 131 / 93; Pulse 73; Resp 17; Pulse Ox 100% ; Pain 7/10; rb1 18:40 BP 138 / 89; Pulse 71; Resp 18; Pulse Ox 99% on R/A; rb1 19:18 BP 126 / 86; Pulse 78; Resp 16; Pulse Ox 98% on R/A; Pain 0/10; iw MDM: 15:40 Patient medically screened. kb 16:09 Data reviewed: vital signs, nurses notes. Data interpreted: Pulse oximetry: on room air kb is 100 %. Interpretation: normal. 19:09 Counseling: I had a detailed discussion with the patient and/or guardian regarding: the kb historical points, exam findings, and any diagnostic results supporting the discharge/admit diagnosis, lab results, the need for outpatient follow up, a family practitioner, to return to the emergency department if symptoms worsen or persist or if there are any questions or concerns that arise at home. 05/29 15:59 Order name: CBC with Diff kb 05/29 15:59 Order name: Basic Metabolic Panel; Complete Time: 17:17 kb 05/29 15:59 Order name: Chest Pa And Lat (2 Views) XRAY; Complete Time: 18:24 kb 05/29 15:59 Order name: Flu; Complete Time: 16:54 kb 05/29 16:52 Order name: Urine Dipstick--Ancillary (enter results); Complete Time: 19:09 eb 05/29 16:52 Order name: Urine --Ancillary (enter results); Complete Time: 19:09 eb 05/29 15:40 Order name: Urine Dipstick-Ancillary (obtain specimen); Complete Time: 16:53 kb 05/29 15:59 Order name: IV Start; Complete Time: 17:35 kb Administered Medications: 16:20 Drug: NS 0.9% 1000 ml Route: IV; Rate: 1000 ml; Site: right antecubital; rb1 18:40 Follow up: IV Status: Completed infusion iw Disposition: 05/29/18 19:12 Discharged to Home. Impression: Cough, Diarrhea, unspecified. - Condition is Stable. - Discharge Instructions: Food Choices to Help Relieve Diarrhea, Adult, Diarrhea, Adult, [id number], Cough, Adult, [id number]. - Prescriptions for Tessalon Perles 100 mg Oral Capsule - take 1 capsule by ORAL route every 8 hours As needed; 15 capsule. - Medication Reconciliation Form, Thank You Letter, Antibiotic Education, Prescription Opioid Use form. - Follow up: Emergency Department; When: As needed; Reason: Worsening of condition. Follow up: Private Physician; When: 2 - 3 days; Reason: Recheck today's complaints, Continuance of care, Re-evaluation by your physician. Addendum: 06/05/2018 09:35 Co-signature as Attending Physician, Sharona SOLO I agree with the assessment k dr and plan of care. Signatures: Dispatcher [employer] EDMO Sharona Romero FNP-C FNP-Ckb Rittger, Kevin, MD MD [facility] Sejal Kline RN RN iw Kylee Briones RN RN [facility] Gisel Tuttle RN RN Corrections: (The following items were deleted from the chart) 05/29 19:19 19:12 05/29/2018 19:12 Discharged to Home. Impression: Cough; Diarrhea, unspecified. iw Condition is Stable. Forms are Medication Reconciliation Form, Thank You Letter, Antibiotic Education, Prescription Opioid Use. Follow up: Emergency Department; When: As needed; Reason: Worsening of condition. Follow up: Private Physician; When: 2 - 3 days; Reason: Recheck today's complaints, Continuance of care, Re-evaluation by your physician. kb
== END 2018-05-29 19:19 | disposition home or self-care (01) ==
LOC: ER 14:17
DX: R05 Cough (principal); R19.7 Diarrhea, unspecified; Z88.6 Allergy status to analgesic agent; Z88.5 Allergy status to narcotic agent; E78.5 Hyperlipidemia, unspecified; I10 Essential (primary) hypertension
CPT/HCPCS: 36415; 71046; 80048; 81003; 81025; 85025; 87804; J7030